=== PATIENT | female | born 1965 | race Caucasian/White ===

== ENCOUNTER 2025-06-22 06:00 | Day surgery (SDC) | payer BC ==
[~2025-06-22 06:00] MED LIST: Sodium Chloride 0.9% 10 ML Syringe FLUSH PRN; Sodium Chloride 0.9% 10 ML Syringe FLUSH SCH
[2025-06-22] MEDS ORDERED: propofoL 500 MG/50 ML 50 ML ONE (06:13)
[2025-06-22] MEDS ORDERED: Ropivacaine 0.5% 5 MG/ML 30 ML SDV ONE (06:19)
[2025-06-22] MEDS ORDERED: dexmedeTOMIDine HCl 200 MCG/2 ML SDV ONE (06:19)
[2025-06-22] MEDS ORDERED: EPINEPHrine 1 MG/ML SDV ONE (06:20)
[2025-06-22] MEDS ORDERED: Dexamethasone 4 MG/ML 5 ML MDV ONE (06:20)
[2025-06-22] MEDS ORDERED: Ondansetron 4 MG/2 ML SDV ONE ×2 (06:20→08:06)
[2025-06-22] MEDS ORDERED: Ketorolac 30 MG/ML SDV ONE (06:20)
[2025-06-22] MEDS: Lactated Ringers 1,000 ML IV SCH (06:25)
[2025-06-22] MEDS: Scopalamine 1mg/3day Transdermal Patch TRDERM ONE (06:41)
[2025-06-22] MEDS: oxyCODONE ER 10 MG TAB.ER PO ONE (06:41)
[2025-06-22] MEDS ORDERED: fentaNYL 100 MCG/2 ML SDV ONE (06:48)
[2025-06-22] MEDS ORDERED: ePHEDrine 50 MG/ML SDV ONE (07:14)
[2025-06-22] MEDS ORDERED: Lactated Ringers 1,000 ML ONE (07:38)
[2025-06-22] MEDS ORDERED: Propofol 200 MG/20 ML SDV ONE (08:03)
[2025-06-22] MEDS: Morphine 8 MG, EPINEPHrine 0.3 MG, Cefuroxime 750 MG, Ketorolac 30 MG, Sodium Chloride ... PRN (08:10)
[2025-06-22] MEDS ORDERED: fentaNYL 100 MCG/2 ML SDV IVPUSH PRN (09:00)
== END 2025-06-22 11:55 | disposition home or self-care (01) ==
LOC: JD.SDS 06:00
PROVIDERS: ATTEND Orthopaedic Surgery
DX: M17.12 Unilateral primary osteoarthritis, left knee (principal); I10 Essential (primary) hypertension; E66.9 Obesity, unspecified; Z68.31 Body mass index [BMI] 31.0-31.9, adult; Z79.899 Other long term (current) drug therapy
CPT/HCPCS: 0055T; 27447; 64447; 73560; 97110; 97116; 97161; A9270; C1713; C1776; J0169; J0690; J0697; J1100; J1885; J2272; J2405; J2704; J2795; J3010; J3373; J7120; 01402; J3490